=== PATIENT | male | born 2005 | race African-American/Black ===

== ENCOUNTER 2024-06-15 09:51 | Emergency (ER) | payer MEDICAID ==
[~2024-06-15] VITALS: Ht 180.3 cm; Wt 100.0 kg
[2024-06-15 10:05] LABS: COVID AG,FIA SOURCE NASAL SWAB
[2024-06-15] MEDS ORDERED: ALBU18HF12 IH (10:06)
[2024-06-15 12:01] LABS: INFLUENZA TYPE A NEGATIVE FOR TYPE A (NEGATIVE); INFLUENZA TYPE B NEGATIVE FOR TYPE B (NEGATIVE); SARS-COV2 (COVID) ANTIGEN,FIA Negative (Negative)
[2024-06-15] MEDS: ALBUTEROL SULFATE HFA 90 MCG/PUFF 8 GM INHALER IH ONE (12:11)
[2024-06-15] MEDS ORDERED: GUAI1TBM19 PO (12:34)
[2024-06-15] MEDS ORDERED: FLUT16SP NASAL (12:34)
[2024-06-15] MEDS ORDERED: AZIT250T9 PO (12:43)
[2024-06-15] MEDS ORDERED: AMOX-457 PO (12:45)
[2024-06-15 13:06] VITALS: BP 124/59; PULSE 96; RESP 20; TEMP 98.9; O2SAT 95
== END 2024-06-15 13:08 | disposition home or self-care (01) ==
LOC: EMS 09:57
DX: J18.9 Pneumonia, unspecified organism (principal); R09.81 Nasal congestion; J45.909 Unspecified asthma, uncomplicated; I10 Essential (primary) hypertension; Z88.1 Allergy status to other antibiotic agents; Z20.822 Contact with and (suspected) exposure to COVID-19
CPT/HCPCS: 99284; 71046; 87426; 87430; 87804; 94640; J3535